=== PATIENT | female | born 1935 | race Two or more races ===

== ENCOUNTER → 2017-05-14 | Outpatient (CLI) | payer MEDICARE, MEDICAID ==
[~2017-05-14] VITALS: Ht 157.5 cm; Wt 61.7 kg
[~2017-05-14] MED LIST: ADENOSINE 52 MG in GIVE UN-DILUTED 0 ML IV ONE; ADENOSINE 90 MG/30 ML INJ IV ONE; ALPR0.25 PO; ASPI81TA13 PO; CARV6.25 PO; CLOP75TA41 PO; DEXL60CA3 PO; DIGO0.1262 PO; IBUP200C14 PO; LINA5TAB PO; SIMV-8 PO; SPIR25TA89 PO; VALS160T53 PO
== END | disposition home or self-care (01) ==
LOC: Rad HDHVI 09:08
PROVIDERS: ATTEND Internal Medicine Cardiovascular Disease
DX: I11.0 Hypertensive heart disease with heart failure (principal); I50.43 Acute on chronic combined systolic (congestive) and diastolic (congestive) heart failure; I25.10 Atherosclerotic heart disease of native coronary artery without angina pectoris; E11.9 Type 2 diabetes mellitus without complications; I25.5 Ischemic cardiomyopathy; E78.00 Pure hypercholesterolemia, unspecified; J44.9 Chronic obstructive pulmonary disease, unspecified; Z95.0 Presence of cardiac pacemaker
CPT/HCPCS: 78452; 93005; 96374; 96375; A9500; J0153

== ENCOUNTER → 2017-06-03 | Outpatient (CLI) | payer MEDICARE, MEDICAID ==
[~2017-06-03] MED LIST changes: -ADENOSINE 52 MG in GIVE UN-DILUTED 0 ML IV ONE; -ADENOSINE 90 MG/30 ML INJ IV ONE
== END | disposition home or self-care (01) ==
LOC: Rad HDHVI 08:51
PROVIDERS: ATTEND Internal Medicine Cardiovascular Disease
DX: I25.5 Ischemic cardiomyopathy (principal); I50.43 Acute on chronic combined systolic (congestive) and diastolic (congestive) heart failure
CPT/HCPCS: 93306

== ENCOUNTER → 2018-08-10 | Outpatient (CLI) | payer MEDICARE, MEDICAID ==
[~2018-08-10] MED LIST changes: +ASPI1TAB19 PO; -ASPI81TA13 PO; +SPIR25TA8 PO; -SPIR25TA89 PO
== END | disposition home or self-care (01) ==
LOC: Rad HDHVI 08:57
PROVIDERS: ATTEND Internal Medicine Cardiovascular Disease
DX: I08.8 Other rheumatic multiple valve diseases (principal); I27.20 Pulmonary hypertension, unspecified; I25.119 Atherosclerotic heart disease of native coronary artery with unspecified angina pectoris; I11.0 Hypertensive heart disease with heart failure; I50.23 Acute on chronic systolic (congestive) heart failure; I31.3 Pericardial effusion (noninflammatory)
CPT/HCPCS: 93306

== ENCOUNTER → 2018-08-13 | Outpatient (CLI) | payer MEDICARE, MEDICAID ==
[~2018-08-13] VITALS: Ht 157.5 cm; Wt 63.5 kg
[~2018-08-13] MED LIST changes: +ADENOSINE 53 MG in GIVE UN-DILUTED 0 ML IV ONE; +ADENOSINE 90 MG/30 ML INJ IV ONE
== END | disposition home or self-care (01) ==
LOC: Rad HDHVI 09:18
PROVIDERS: ATTEND Internal Medicine Cardiovascular Disease
DX: I25.119 Atherosclerotic heart disease of native coronary artery with unspecified angina pectoris (principal); I42.0 Dilated cardiomyopathy; E11.9 Type 2 diabetes mellitus without complications; I11.0 Hypertensive heart disease with heart failure; I50.23 Acute on chronic systolic (congestive) heart failure
CPT/HCPCS: 78452; 93005; 96374; 96375; A9500; J0153

== ENCOUNTER → 2018-09-28 | Outpatient (CLI) | payer MEDICARE, MEDICAID ==
[~2018-09-28] MED LIST changes: -ADENOSINE 53 MG in GIVE UN-DILUTED 0 ML IV ONE; -ADENOSINE 90 MG/30 ML INJ IV ONE; +METF-370 PO; +OME20T PO; +SACU1TAB PO; +SIMV-13 PO; +[UNRECOGNIZED DRUG - CODE] PO
[2018-09-28 09:15] VITALS: BP 128/72
--- NOTE | 2018-09-28 09:15 | NUR ---
[facility] PATIENT ARRIVED TO [facility] FOR PRE OP FOR AICD GENERATOR CHANGE.
[2018-09-28 09:47] VITALS: BP 130/68
--- NOTE | 2018-09-28 09:47 | NUR ---
Pre-Op Discharge Summary: See e-MAR for any medications given for this visit. Pre-op orders received and carried out per MD of EKG, LABS and chest xrays. Patient given a copy of EKG with instructions to go to [facility] out patient for further follow up care.
[2018-09-28 11:51] LABS: BUN/Creatinine Ratio 17.6; Calcium 9.1 mg/dL (8.5-10.1); Potassium 4.7 mmol/L (3.5-5.1)
[2018-09-28 11:52] LABS: Eosinophils # (auto) 0.1 uL; Monocytes # (auto) 0.4 uL; Monocytes % (auto) 4.8 % (0.0-12.0)
[2018-09-28 11:55] LABS: Basophils # (auto) 0.1 uL; Basophils % (auto) 0.6 % (0.0-2.0); Eosinophils % (auto) 1.6 % (0.0-7.0); Lymphocytes # (auto) 2.3 uL; Lymphocytes % (auto) 28.8 % (10.0-50.0); Mean Corpuscular Hemoglobin 27.1 pg (28.0-32.0); Mean Corpuscular Hgb Conc. 32.4 g/dL (32.0-36.0); Mean Corpuscular Volume 83.8 fL (80.0-100.0); Neutrophils % (auto) 64.2 % (37.0-80.0); Nucleated Red Blood Cells % 0.1 %; Platelet Count (auto) 231 10^3/uL (140-450); Red Blood Cells 4.41 10^6/uL (4.0-5.20); Red Cell Distribution Width 13.9 % (11.8-14.3); White Blood Cell 7.9 10^3/uL (4.4-10.8)
[2018-09-28 11:58] LABS: INR 1.05 (0.9-1.15); Partial Thromboplastin Time 22.5 sec (23.78-33.04); Prothrombin Time 11.2 sec (9.27-12.13)
== END | disposition home or self-care (01) ==
LOC: Rad HDHVI 08:50
PROVIDERS: ATTEND Internal Medicine Cardiovascular Disease
DX: Z01.818 Encounter for other preprocedural examination (principal); D64.9 Anemia, unspecified; R79.1 Abnormal coagulation profile; I11.0 Hypertensive heart disease with heart failure; I50.9 Heart failure, unspecified; I70.0 Atherosclerosis of aorta; Z95.810 Presence of automatic (implantable) cardiac defibrillator
CPT/HCPCS: 36415; 71046; 80048; 82962; 85025; 85610; 85730; 93005; G0463

== ENCOUNTER 2018-10-01 08:34 | Inpatient (IN) | payer MEDICARE, MEDICAID | END 2018-10-02 16:00 | disposition home or self-care (01) | LOC: CATH 08:34 → TELE-WESTW 16:34 | PROC: 0JPT0PZ Removal of Cardiac Rhythm Related Device from Trunk Subcutaneous Tissue and Fascia, Open Approach (ICD-10-PCS; principal; ~2018-10-01) | PROC: 0JH609Z Insertion of Cardiac Resynchronization Defibrillator Pulse Generator into Chest Subcutaneous Tissue and Fascia, Open Approach (ICD-10-PCS; ~2018-10-01) | DX: I11.0 Hypertensive heart disease with heart failure (principal); I50.23 Acute on chronic systolic (congestive) heart failure; I42.0 Dilated cardiomyopathy; Z45.02 Encounter for adjustment and management of automatic implantable cardiac defibrillator; E78.5 Hyperlipidemia, unspecified ==

== ENCOUNTER 2018-10-19 20:46 | Inpatient (IN) | payer MEDICARE, MEDICAID | END 2018-10-23 15:40 | disposition home or self-care (01) | LOC: ER 20:46 → TELE 10-20 07:26 → TELE-CENTR 10-20 15:37 | DX: J18.9 Pneumonia, unspecified organism (principal); I50.23 Acute on chronic systolic (congestive) heart failure; I31.3 Pericardial effusion (noninflammatory); E11.21 Type 2 diabetes mellitus with diabetic nephropathy; I13.0 Hypertensive heart and chronic kidney disease with heart failure and stage 1 through stage 4 chronic kidney disease, or unspecified chronic kidney disease; I42.9 Cardiomyopathy, unspecified; N18.3 Chronic kidney disease, stage 3 (moderate); E11.22 Type 2 diabetes mellitus with diabetic chronic kidney disease; I25.10 Atherosclerotic heart disease of native coronary artery without angina pectoris; D63.8 Anemia in other chronic diseases classified elsewhere ==

== ENCOUNTER → 2019-03-09 | Outpatient (CLI) | payer MEDICARE, MEDICAID ==
[~2019-03-09] MED LIST changes: -DEXL60CA3 PO; -SIMV-8 PO; -VALS160T53 PO
[2019-03-09 11:43] LABS: Urine Blood Negative /uL (Negative); Urine Specific Gravity 1.017 (1.001-1.035)
[2019-03-09 11:46] LABS: Basophils # (auto) 0 uL; Basophils % (auto) 0.5 % (0.0-2.0); Eosinophils # (auto) 0.1 uL; Eosinophils % (auto) 1.8 % (0.0-7.0); Hematocrit 35.1 % (36.0-46.0); Hemoglobin 11.6 g/dL (12.2-16.2); Lymphocytes % (auto) 26.4 % (10.0-50.0); Mean Corpuscular Hemoglobin 27.9 pg (28.0-32.0); Mean Corpuscular Hgb Conc. 33.2 g/dL (32.0-36.0); Mean Corpuscular Volume 84.1 fL (80.0-100.0); Monocytes # (auto) 0.4 uL; Monocytes % (auto) 5.1 % (0.0-12.0); Neutrophils # (auto) 4.9 uL; Neutrophils % (auto) 66.2 % (37.0-80.0); Platelet Count (auto) 218 10^3/uL (140-450); Red Blood Cells 4.17 10^6/uL (4.0-5.20); Red Cell Distribution Width 14.1 % (11.8-14.3); White Blood Cell 7.4 10^3/uL (4.4-10.8)
[2019-03-09 11:50] LABS: Potassium 4.8 mmol/L (3.5-5.1)
[2019-03-09 11:57] LABS: Albumin 3.8 g/dL (3.4-5.0); BUN/Creatinine Ratio 26.5; Bilirubin, Total 0.3 mg/dL (0.2-1.0); Calcium 9.4 mg/dL (8.5-10.1); Total Protein 7.6 g/dL (6.4-8.2)
[2019-03-09 12:00] LABS: Free T4 (Free Thyroxine) 0.99 ng/dL (0.89-1.76)
== END | disposition home or self-care (01) ==
LOC: LAB 08:23
PROVIDERS: ATTEND Internal Medicine Cardiovascular Disease
DX: I13.0 Hypertensive heart and chronic kidney disease with heart failure and stage 1 through stage 4 chronic kidney disease, or unspecified chronic kidney disease (principal); E11.22 Type 2 diabetes mellitus with diabetic chronic kidney disease; I50.23 Acute on chronic systolic (congestive) heart failure; N18.3 Chronic kidney disease, stage 3 (moderate); K90.9 Intestinal malabsorption, unspecified; N39.0 Urinary tract infection, site not specified
CPT/HCPCS: 36415; 80053; 80061; 81003; 82306; 82607; 83036; 84439; 84443; 85025; 87086; 87088; 87186

== ENCOUNTER → 2019-04-16 | Outpatient (CLI) | payer MEDICARE, MEDICAID | END | disposition home or self-care (01) | LOC: Rad HDHVI 08:49 | PROVIDERS: ATTEND Internal Medicine Cardiovascular Disease | DX: I31.3 Pericardial effusion (noninflammatory) (principal); I25.5 Ischemic cardiomyopathy; I13.0 Hypertensive heart and chronic kidney disease with heart failure and stage 1 through stage 4 chronic kidney disease, or unspecified chronic kidney disease; I50.9 Heart failure, unspecified; N18.3 Chronic kidney disease, stage 3 (moderate) | CPT/HCPCS: 93306 ==

== ENCOUNTER → 2020-06-13 | Outpatient (CLI) | payer MEDICARE, MEDICAID ==
[2020-06-13 12:09] LABS: Basophils # (auto) 0 10 ^3/uL (0-0.2); Basophils % (auto) 0.6 % (0.0-2.0); Eosinophils # (auto) 0.1 10 ^3/uL (0-0.8); Eosinophils % (auto) 1.4 % (0.0-7.0); Hematocrit 33.4 % (36.0-46.0); Lymphocytes # (auto) 1.9 10 ^3/uL (0.4-5.4); Lymphocytes % (auto) 24.3 % (10.0-50.0); Mean Corpuscular Hemoglobin 27.1 pg (28.0-32.0); Mean Corpuscular Hgb Conc. 32.8 g/dL (32.0-36.0); Mean Corpuscular Volume 82.6 fL (80.0-100.0); Monocytes # (auto) 0.4 10 ^3/uL (0-1.3); Monocytes % (auto) 5.5 % (0.0-12.0); Neutrophils # (auto) 5.3 10 ^3/uL (1.6-8.6); Neutrophils % (auto) 68.2 % (37.0-80.0); Platelet Count (auto) 238 10^3/uL (140-450); Red Blood Cells 4.04 10^6/uL (4.0-5.20); Red Cell Distribution Width 13.5 % (11.8-14.3); White Blood Cell 7.7 10^3/uL (4.4-10.8)
[2020-06-13 12:16] LABS: Urine Blood Negative /uL (Negative); Urine Specific Gravity 1.015 (1.001-1.035)
[2020-06-13 12:38] LABS: Potassium 4.6 mmol/L (3.5-5.1)
[2020-06-13 12:54] LABS: Albumin 3.6 g/dL (3.4-5.0); BUN/Creatinine Ratio 21.1; Bilirubin, Total 0.3 mg/dL (0.2-1.0); Calcium 9.4 mg/dL (8.5-10.1); Total Protein 7.1 g/dL (6.4-8.2)
[2020-06-13 14:53] LABS: Free T4 (Free Thyroxine) 0.96 ng/dL (0.89-1.76)
== END | disposition home or self-care (01) ==
LOC: LAB 09:02
PROVIDERS: ATTEND Internal Medicine Cardiovascular Disease
DX: I10 Essential (primary) hypertension (principal); D51.3 Other dietary vitamin B12 deficiency anemia; E11.9 Type 2 diabetes mellitus without complications; E55.9 Vitamin D deficiency, unspecified; D64.9 Anemia, unspecified; R00.2 Palpitations; R53.1 Weakness; R30.0 Dysuria
CPT/HCPCS: 36415; 80053; 80061; 81003; 82306; 82607; 83036; 84439; 84443; 85025

== ENCOUNTER → 2021-02-20 | Outpatient (CLI) | payer MEDICARE, MEDICAID ==
[~2021-02-20] VITALS: Ht 157.5 cm; Wt 62.6 kg
[~2021-02-20] MED LIST changes: +ADENOSINE 53 MG in GIVE UN-DILUTED 0 ML IV ONE; +ADENOSINE 90 MG/30 ML INJ IV ONE; -CLOP75TA41 PO; +CLOP75TA70 PO
== END | disposition home or self-care (01) ==
LOC: Rad HDHVI 07:54
PROVIDERS: ATTEND Internal Medicine Cardiovascular Disease
DX: I10 Essential (primary) hypertension (principal); E78.5 Hyperlipidemia, unspecified; E11.9 Type 2 diabetes mellitus without complications; R07.9 Chest pain, unspecified; Z95.0 Presence of cardiac pacemaker
CPT/HCPCS: 78452; 93005; 96374; 96375; A9500; J0153

== ENCOUNTER → 2021-02-21 | Outpatient (CLI) | payer MEDICARE, MEDICAID ==
[~2021-02-21] MED LIST changes: -ADENOSINE 53 MG in GIVE UN-DILUTED 0 ML IV ONE; -ADENOSINE 90 MG/30 ML INJ IV ONE
== END | disposition home or self-care (01) ==
LOC: Rad HDHVI 07:58
PROVIDERS: ATTEND Internal Medicine Cardiovascular Disease
DX: R07.89 Other chest pain (principal); R06.02 Shortness of breath
CPT/HCPCS: 93306

== ENCOUNTER → 2022-01-21 | Outpatient (CLI) | payer MEDICARE, MEDICAID | END | disposition home or self-care (01) | LOC: Rad HDHVI 08:36 | PROVIDERS: ATTEND Internal Medicine Cardiovascular Disease | DX: I65.23 Occlusion and stenosis of bilateral carotid arteries (principal); E78.00 Pure hypercholesterolemia, unspecified; R07.89 Other chest pain | CPT/HCPCS: 93880 ==

== ENCOUNTER → 2022-02-11 | Outpatient (CLI) | payer MEDICARE, MEDICAID ==
[~2022-02-11] VITALS: Ht 157.5 cm; Wt 62.6 kg
[~2022-02-11] MED LIST changes: +ADENOSINE 53 MG in GIVE UN-DILUTED 0 ML IV ONE; +ADENOSINE 90 MG/30 ML INJ IV ONE
== END | disposition home or self-care (01) ==
LOC: Rad HDHVI 08:05
PROVIDERS: ATTEND Internal Medicine Cardiovascular Disease
DX: E11.65 Type 2 diabetes mellitus with hyperglycemia (principal); E78.5 Hyperlipidemia, unspecified; E11.9 Type 2 diabetes mellitus without complications; I10 Essential (primary) hypertension; E11.40 Type 2 diabetes mellitus with diabetic neuropathy, unspecified; I42.0 Dilated cardiomyopathy; I80.231 Phlebitis and thrombophlebitis of right tibial vein; R06.02 Shortness of breath; R60.9 Edema, unspecified; I25.10 Atherosclerotic heart disease of native coronary artery without angina pectoris; Z95.0 Presence of cardiac pacemaker
CPT/HCPCS: 78452; 93005; 96374; 96375; A9500; J0153

== ENCOUNTER → 2022-02-27 | Outpatient (CLI) | payer MEDICARE, MEDICAID ==
[~2022-02-27] MED LIST changes: -ADENOSINE 53 MG in GIVE UN-DILUTED 0 ML IV ONE; -ADENOSINE 90 MG/30 ML INJ IV ONE
[2022-02-27 12:29] LABS: Urine Blood Negative /uL (Negative); Urine Specific Gravity 1.016 (1.001-1.035)
[2022-02-27 12:30] LABS: Basophils # (auto) 0 10 ^3/uL (0-0.2); Basophils % (auto) 0.5 % (0.0-2.0); Eosinophils # (auto) 0.1 10 ^3/uL (0-0.8); Eosinophils % (auto) 1.7 % (0.0-7.0); Hematocrit 37.9 % (36.0-46.0); Lymphocytes # (auto) 2.6 10 ^3/uL (0.4-5.4); Lymphocytes % (auto) 36.3 % (10.0-50.0); Mean Corpuscular Hemoglobin 26.6 pg (28.0-32.0); Mean Corpuscular Hgb Conc. 31.6 g/dL (32.0-36.0); Mean Corpuscular Volume 84.1 fL (80.0-100.0); Monocytes # (auto) 0.4 10 ^3/uL (0-1.3); Monocytes % (auto) 5.5 % (0.0-12.0); Red Blood Cells 4.51 10^6/uL (4.0-5.20); Red Cell Distribution Width 14.2 % (11.8-14.3); White Blood Cell 7.1 10^3/uL (4.4-10.8)
[2022-02-27 12:40] LABS: Albumin 3.6 g/dL (3.4-5.0); Calcium 9.6 mg/dL (8.5-10.1); Potassium 5.3 mmol/L (3.5-5.1)
[2022-02-27 12:44] LABS: BUN/Creatinine Ratio 16.8; Bilirubin, Total 0.3 mg/dL (0.2-1.0); Total Protein 7.2 g/dL (6.4-8.2)
[2022-02-27 12:49] LABS: Free T4 (Free Thyroxine) 1.07 ng/dL (0.89-1.76)
== END | disposition home or self-care (01) ==
LOC: LAB 08:18
PROVIDERS: ATTEND Internal Medicine Cardiovascular Disease
DX: D51.3 Other dietary vitamin B12 deficiency anemia (principal); D64.9 Anemia, unspecified; E11.9 Type 2 diabetes mellitus without complications; E55.9 Vitamin D deficiency, unspecified; I10 Essential (primary) hypertension; R00.2 Palpitations; R53.1 Weakness; R30.0 Dysuria
CPT/HCPCS: 36415; 80053; 80061; 81003; 82306; 82607; 83036; 84439; 84443; 85025; 87086

== ENCOUNTER → 2022-04-22 | Outpatient (CLI) | payer MEDICARE, MEDICAID ==
[~2022-04-22] MED LIST changes: +CARV3.1240 PO; +CHLO25TA2 PO; +CHOL50007 PO; +DAPA1TAB4 PO; +DICL75TA3 PO; +ENAL2.5T7 PO; +FURO40TA4 PO; +POTA1TAB61 PO; +ROSU10TA16 PO
[2022-04-22 08:19] VITALS: BP 120/60
[2022-04-22 08:33] VITALS: BP 121/60
[2022-04-22 11:39] LABS: BUN/Creatinine Ratio 25.4; Calcium 8.9 mg/dL (8.5-10.1); Potassium 4.1 mmol/L (3.5-5.1)
[2022-04-22 12:02] LABS: Basophils # (auto) 0 10 ^3/uL (0-0.2); Basophils % (auto) 0.6 % (0.0-2.0); Eosinophils # (auto) 0.1 10 ^3/uL (0-0.8); Eosinophils % (auto) 1.7 % (0.0-7.0); Hematocrit 37.3 % (36.0-46.0); Lymphocytes # (auto) 2.6 10 ^3/uL (0.4-5.4); Lymphocytes % (auto) 32.7 % (10.0-50.0); Mean Corpuscular Hgb Conc. 32.1 g/dL (32.0-36.0); Mean Corpuscular Volume 84.2 fL (80.0-100.0); Monocytes # (auto) 0.5 10 ^3/uL (0-1.3); Monocytes % (auto) 5.8 % (0.0-12.0); Neutrophils # (auto) 4.7 10 ^3/uL (1.6-8.6); Neutrophils % (auto) 59.2 % (37.0-80.0); Red Blood Cells 4.43 10^6/uL (4.0-5.20); Red Cell Distribution Width 14.2 % (11.8-14.3); White Blood Cell 7.9 10^3/uL (4.4-10.8)
[2022-04-22 12:32] LABS: INR 1.03 (0.9-1.15); Partial Thromboplastin Time 27.9 sec (24.6-33.4)
== END | disposition home or self-care (01) ==
LOC: Rad HDHVI 08:03
PROVIDERS: ATTEND Internal Medicine Cardiovascular Disease
DX: Z01.818 Encounter for other preprocedural examination (principal); R94.31 Abnormal electrocardiogram [ECG] [EKG]; I11.0 Hypertensive heart disease with heart failure; I50.23 Acute on chronic systolic (congestive) heart failure; R06.2 Wheezing; I42.0 Dilated cardiomyopathy; I25.5 Ischemic cardiomyopathy; R06.02 Shortness of breath; I70.0 Atherosclerosis of aorta; R79.1 Abnormal coagulation profile; Z95.0 Presence of cardiac pacemaker
CPT/HCPCS: 36415; 71046; 80048; 85025; 85610; 85730; 93005; G0463

== ENCOUNTER 2022-04-25 06:32 | Day surgery (SDC) | payer MEDICARE, MEDICAID ==
[~2022-04-25] VITALS: Ht 157.5 cm; Wt 61.2 kg
[~2022-04-25 06:32] MED LIST changes: -ALPR0.25 PO; -CARV6.25 PO; -METF-370 PO; -SIMV-13 PO
[2022-04-25] MEDS ORDERED: LIDOCAINE 2%HCL (LOCAL ANESTH.) INJ 20ML MDV ONE (07:29)
[2022-04-25] MEDS ORDERED: IOHEXOL 350 MG/ML 100ML IJ ONE (07:29)
[2022-04-25] MEDS ORDERED: fentaNYL CITRATE 100 MCG/2 ML VL ONE (08:37)
[2022-04-25] MEDS ORDERED: ANGIOMAX 250 MG VIAL IV ONE (08:37)
[2022-04-25] MEDS ORDERED: MIDAZOLAM HCL 2MG/2ML 2ml VIAL (1mg/ml) ONE (08:38)
[2022-04-25] MEDS ORDERED: SODIUM CHL 0.9% 50 ML ONE (08:38)
== END 2022-04-25 12:00 | disposition home or self-care (01) ==
LOC: CATH 06:32
PROVIDERS: ATTEND Internal Medicine Cardiovascular Disease
DX: I25.10 Atherosclerotic heart disease of native coronary artery without angina pectoris (principal); I42.9 Cardiomyopathy, unspecified; I42.0 Dilated cardiomyopathy; I73.9 Peripheral vascular disease, unspecified; E78.5 Hyperlipidemia, unspecified; Z87.891 Personal history of nicotine dependence; J44.9 Chronic obstructive pulmonary disease, unspecified; E11.40 Type 2 diabetes mellitus with diabetic neuropathy, unspecified; E11.21 Type 2 diabetes mellitus with diabetic nephropathy; E11.319 Type 2 diabetes mellitus with unspecified diabetic retinopathy without macular edema; I50.20 Unspecified systolic (congestive) heart failure; I11.0 Hypertensive heart disease with heart failure; Z95.810 Presence of automatic (implantable) cardiac defibrillator; Z79.899 Other long term (current) drug therapy; Z79.84 Long term (current) use of oral hypoglycemic drugs; Z20.822 Contact with and (suspected) exposure to COVID-19
CPT/HCPCS: 93458; C1760; C1894; J1644; J2250; J3010; J7030; Q9967; U0003; 99152; 99153

== ENCOUNTER → 2023-08-25 | Outpatient (CLI) | payer MEDICARE, MEDICAID ==
[~2023-08-25] MED LIST changes: +ENAL1TAB42 PO; -ENAL2.5T7 PO
== END | disposition home or self-care (01) ==
LOC: Rad HDHVI 08:30
PROVIDERS: ATTEND Internal Medicine Cardiovascular Disease
DX: I08.3 Combined rheumatic disorders of mitral, aortic and tricuspid valves (principal); R06.02 Shortness of breath; E78.5 Hyperlipidemia, unspecified
CPT/HCPCS: 93306

== ENCOUNTER → 2024-07-12 | Outpatient (CLI) | payer MEDICARE, MEDICAID ==
[~2024-07-12] MED LIST changes: +POTA-215 PO; -POTA1TAB61 PO
--- NOTE | 2024-07-12 16:50 | DVHSR ---
APPROVED REPORT EXAM: Two-dimensional and M-mode echocardiogram with Doppler and color Doppler. DIMENSIONS LVDd7.4 (3.8-5.7cm)LA (2D)4.2 (1.9-4.0cm)Aortic Root2.8 (2.0-3.7cm) LVDs7.0 (2.5-4.0cm)LA (MM) (1.9-4.0cm)Aortic Cusp Exc1.0 (1.5-2.0cm) EF (%) 12.4 (55-70%)Rt. Atrium3.6 (1.9-4.0cm)Asc. Aorta cm IVSd1.0 (0.7-1.1cm)RV (D)3.2 (1.8-2.4cm) PWd1.3 (0.7-1.1cm) Mitral Valve MitralMitral Stenosis E wave1.33m/sMV Mean GR.mmHg A wave1.60m/sMV Peak GR.127mmHg E/A ratio0.82D MVAcm2 DECEL [id number] 1/2 Timems Aortic Valve Aortic ValveAortic Stenosis V10.42m/Shea Mean GR.4mmHg V21.52m/Shea Peak GR.9mmHg Pulmonic Valve V20.54m/s Tricuspid Valve TR Velocity2.87m/s [id number] LEFT VENTRICLE The Ejection Fraction is <25%. ATRIA The left atrium is mildly dilated. The right atrium size is normal. MITRAL VALVE Mitral annular calcification is moderate. Mitral regurgitation is moderate to severe. PULMONIC VALVE The pulmonic valve is not well visualized. TRICUSPID VALVE The tricuspid valve is grossly normal. There is moderate tricuspid regurgitation. AORTIC VALVE The aortic valve is mildlycalcified. No aortic regurgitation is present. GREAT VESSELS The aortic root is normal size. PERICARDIAL EFFUSION There is a small pericardial effusion. Conclusion MILD PAH LVE EF <20% PACEMAKER LEAD NOTED LVH MOD TR SEVERE MR MILD AV SCLEROSIS
== END | disposition home or self-care (01) ==
LOC: Rad HDHVI 09:45
PROVIDERS: ATTEND Internal Medicine Cardiovascular Disease
DX: I08.3 Combined rheumatic disorders of mitral, aortic and tricuspid valves (principal); I11.9 Hypertensive heart disease without heart failure; I31.39 Other pericardial effusion (noninflammatory)
CPT/HCPCS: 93306

== ENCOUNTER → 2024-07-16 | Outpatient (CLI) | payer MEDICARE, MEDICAID ==
[~2024-07-16] VITALS: Ht 157.5 cm; Wt 61.2 kg
[~2024-07-16] MED LIST changes: +ADENOSINE 51 MG in GIVE UN-DILUTED 0 ML IV ONE; +ADENOSINE 90 MG/30 ML INJ IV ONE
== END | disposition home or self-care (01) ==
LOC: Rad HDHVI 08:50
PROVIDERS: ATTEND Internal Medicine Cardiovascular Disease
DX: I11.0 Hypertensive heart disease with heart failure (principal); I50.23 Acute on chronic systolic (congestive) heart failure; E78.00 Pure hypercholesterolemia, unspecified; R07.89 Other chest pain; E11.21 Type 2 diabetes mellitus with diabetic nephropathy; I49.5 Sick sinus syndrome; Z95.0 Presence of cardiac pacemaker
CPT/HCPCS: 78452; 93005; 96374; 96375; A9500; J0153

== ENCOUNTER → 2024-08-02 | Outpatient (CLI) | payer MEDICARE, MEDICAID ==
[~2024-08-02] MED LIST changes: -ADENOSINE 51 MG in GIVE UN-DILUTED 0 ML IV ONE; -ADENOSINE 90 MG/30 ML INJ IV ONE
--- NOTE | 2024-08-02 16:55 | DVH ---
EXAMINATION: XY L RIB X RAY INDICATION: POST FALL PAIN COMPARISON: None TECHNIQUE: Frontal view of the chest and 2 views of the left ribs history FINDINGS: Pulmonary vascular congestion. Cardiomegaly. No displaced left rib fracture. IMPRESSION: Pulmonary vascular congestion. No acute displaced left rib fracture.
== END | disposition home or self-care (01) ==
LOC: Rad HDHVI 15:49
PROVIDERS: ATTEND Internal Medicine Cardiovascular Disease
DX: I51.7 Cardiomegaly (principal); R09.89 Other specified symptoms and signs involving the circulatory and respiratory systems; R52 Pain, unspecified
CPT/HCPCS: 71101

== ENCOUNTER 2025-06-24 00:05 | Inpatient (IN) | payer MEDICARE, MEDICAID ==
[2025-06-24] VITALS (10 sets, daily range): BP systolic 97–129; BP diastolic 50–69; PULSE 74–89; RESP 14–32; TEMP 97.7–98; O2SAT 90–98
[~2025-06-24] VITALS: Ht 152.4 cm; Wt 56.1 kg
[2025-06-24] MEDS: FUROSEMIDE 40 MG/4 ML VIAL IV ONE (00:23)
[2025-06-24] MEDS: LORazepam 2MG/ML-1ML VIAL IV ONE (00:23)
--- NOTE | 2025-06-24 00:24 | ECG ---
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
--- NOTE | 2025-06-24 00:26 | ED.PDOC ---
SOB-HPI HPI Comments 89-year-old female who came to ER via EMS for shortness of breath. Per EMS, patient picked up at home, has a history of CHF, on home oxygen at 1 L/min. She speaks Farsi only. Has been having shortness of breath for the past few hours, progressively worsening with wheezing. Saturating 93% at 3 L/min. Patient was placed on CPAP and it improved to 94%. No family members at bedside at this time to provide more information Chief Complaint: Shortness of Breath Time Seen by MD: 00:25 Primary Care Provider: UNKNOWN Reviewed notes: Stunt Driver Notes Information Source: Patient, Emergency Med Personnel Mode of Arrival: EMS Past Medical History PAST MEDICAL HISTORY: AFIB, CHF, DM, High Lipids, HTN Surgical History: Denies all surgeries MATERIAL LIAISON History: No Pertinent MATERIAL LIAISON History Family History Family History: No family hx of Cancer Social History Smoker: Non-Smoker Alcohol: Rarely Drugs: Denies Drug Use Lives In: Home Constitutional: denies: chills, diaphoresis, fatigue, fever, malaise, sweats, weakness, others EENTM: denies: blurred vision, double vision, ear bleeding, ear discharge, ear drainage, ear pain, ear ringing, eye pain, eye redness, hearing loss, mouth pain, mouth swelling, nasal discharge, nose bleeding, nose congestion, nose pain, photophobia, tearing, throat pain, throat swelling, voice changes, others Respiratory: reports: SOB at rest, shortness of breath, SOB with excertion, wheezing; denies: cough, hemoptysis, orthopnea, stridor, others Cardiovascular: denies: chest pain, dizzy spells, diaphoresis, Dyspnea on exertion, edema, irregular heart beat, left arm pain, lightheadedness, palpitations, PND, syncope, others Gastrointestinal: denies: abdomen distended, abdominal pain, blood streaked bowels, constipated, diarrhea, dysphagia, difficulty swallowing, hematemesis, melena, nausea, poor appetite, poor fluid intake, rectal bleeding, rectal pain, vomiting, others Genitourinary: denies: abnormal vagina bleeding, burning, dyspareunia, dysuria, flank pain, frequency, hematuria, incontinence, pain, , vagina discharge, urgency, others Neurological: denies: dizziness, fainting, headache, left sided numbness, left sided weakness, numbness, paresthesia, pre-existing deficit, right sided numbness, right sided weakness, seizure, speech problems, tingling, tremors, weakness, others Musculoskeletal: denies: back pain, gout, joint pain, joint swelling, muscle pain, muscle stiffness, neck pain, others Integumetry: denies: bruises, change in color, change in hair/nails, dryness, laceration, lesions, lumps, rash, wounds, others Allergic/Immunocompromised: denies: Difficulty Healing, Frequent Infections, Hives, Itching, others Hematologic/Lymphatic: denies: anemia, blood clots, easy bleeding, easy bruising, swollen glands, others Endocrine: denies: excessive hunger, excessive sweating, excessive thirst, excessive urination, flushing, intolerance to cold, intolerance to heat, unexplained weight gain, unexplained weight loss, others Psychiatric: denies: anxiety, bipolar disorder, depression, hopeless, panic disorder, schizophrenia, sleepless, suicidal, others Physical Exam General Appearance: No Apparent Distress, Normal HEENT: Normal ENT Inspection, Pharynx Normal, TMs Normal Neck: Full Range of Motion, Non-Tender, Normal, Normal Inspection Respiratory: Chest Non-Tender, No Accessory Muscle Use, Respiratory Distress, Wheezing Cardiovascular: No Edema, No JVD, No Murmur, No Gallop, Normal Peripheral Pulses, Regular Rate/Rhythm Breast Exam: Deferred Gastrointestinal: No Organomegaly, Non Tender, No Pulsatile Mass, Normal Bowel Sounds, Soft Genitalia: Deferred Pelvic: Deferred Rectal: Deferred Extremities: No calf tenderness, Normal capillary refill, Normal inspection, Normal range of motion, Non-tender, No pedal edema Musculoskeletal : Apperance: Normal Neurologic: Alert, consulting practice director II-XII nml as Tested, No Motor Deficits, Normal Affect, Normal Mood, No Sensory Deficits Cerebellar Function: Normal Reflexes: Normal Skin: Dry, Normal Color, Warm Lymphatic: No Adenopathy Was a procedure done? Was a procedure done?: No Differential Dx Differential Diagnosis: Anxiety, Asthma, Bronchitis, CHF, COPD, Myocardial infarction, Panic Attack, Pneumonia, Respiratory Distress X-Ray, Labs, Meds, VS Vital Signs Date Time Temp Pulse Resp B/P (MAP) Pulse Ox O2 Delivery O2 Flow Rate FiO2 06/24/25 01:30 72 26 108/57 (74) 96 06/24/25 00:32 106 150/90 40 06/24/25 00:31 32 93 Bi-Pap+ 45 45 06/24/25 00:23 150/90 06/24/25 00:20 96.6 110 25 110/40 94 96.6 06/24/25 00:15 96.6 102 35 150/90 (110) 95 96.6 06/24/25 00:13 102 Lab Test 06/24/25 01:31 06/24/25 00:31 06/24/25 00:20 Range/Units Troponin I High Sensitivity 55 *H 64 *H </=34 ng/L White Blood Count 16.5 H 4.4-10.8 10^3/uL Red Blood Count 4.94 4.0-5.20 10^6/uL Hemoglobin 13.4 12.2-16.2 g/dL Hematocrit 41.4 36.0-46.0 % Mean Corpuscular Volume 83.9 80.0-100.0 fL Mean Corpuscular Hemoglobin 27.1 L 28.0-32.0 pg Mean Corpuscular Hemoglobin Concent 32.3 32.0-36.0 g/dL Red Cell Distribution Width 14.3 11.8-14.3 % Platelet Count 265 140-450 10^3/uL Mean Platelet Volume 8.5 6.9-10.8 fL Neutrophils (%) (Auto) 75.4 37.0-80.0 % Lymphocytes (%) (Auto) 20.2 10.0-50.0 % Monocytes (%) (Auto) 3.2 0.0-12.0 % Eosinophils (%) (Auto) 0.4 0.0-7.0 % Basophils (%) (Auto) 0.8 0.0-2.0 % Neutrophils # (Auto) 12.4 H 1.6-8.6 10 ^3/uL Lymphocytes # (Auto) 3.3 0.4-5.4 10 ^3/uL Monocytes # (Auto) 0.5 0-1.3 10 ^3/uL Eosinophils # (Auto) 0.1 0-0.8 10 ^3/uL Basophils # (Auto) 0.1 0-0.2 10 ^3/uL Nucleated Red Blood Cells 0.2 % Prothrombin Time 12.3 H 9.3-11.8 sec Prothrombin Time INR 1.18 H 0.9-1.15 Activated Partial Thromboplast Time 27.5 24.5-34.5 SEC Sodium Level 135 L 136-145 mmol/L Potassium Level 4.5 3.5-5.1 mmol/L Chloride Level 99 98-107 mmol/L Carbon Dioxide Level 26 20-31 mmol/L Anion Gap 10 5-15 Blood Urea Nitrogen 37 H 9-23 mg/dL Creatinine 1.32 H 0.550-1.02 mg/dL Glomerular Filtration Rate Calc 39 >90 mL/min BUN/Creatinine Ratio 28.0 H 10.0-20.0 Serum Glucose 318 H 74-106 mg/dL Calcium Level 9.3 8.7-10.4 mg/dL Total Bilirubin 0.6 0.2-1.0 mg/dL Aspartate Amino Transferase (AST) 27 13-40 U/L Alanine Aminotransferase (ALT) 10 7-40 U/L Alkaline Phosphatase 74 46-116 U/L B-Type Natriuretic Peptide 565.45 0-100 pg/mL Total Protein 7.4 5.7-8.2 g/dL Albumin 4.5 3.2-4.8 g/dL Blood Gas Specimen Type Venous Blood Gas Sample Site Vbg - n/a Blood Gas Patient Temperature 37.0 Arterial Blood Date Drawn Petros Test N/a Venous Blood pH 7.330 7.320-7.430 Venous Blood pCO2 at Patient Temp 48.4 38.0-54.0 mmHg Venous Blood pO2 at Patient Temp 68.4 H 23.0-48.0 mmHg Venous Blood HCO3 24.9 22.0-29.0 mmol/L Venous Blood Base Excess -1.5 -2.0-3.0 mmol/L Blood Gas Set Respiration Rate 12.0 Blood Gas Modality Mask - bipap Blood Gas Spontaneous Rate 36 FiO2 % 40.0 Blood Gas EPAP 5 Blood Gas IPAP 12 Current Medications Medications (Trade) Dose Ordered Sig/Annmarie Route Start Time Stop Time Status Last Admin Furosemide (Lasix Injection) 40 mg ONCE ONCE IV 06/24/25 00:15 06/24/25 00:16 DC 06/24/25 00:23 Lorazepam (Ativan Inj) 0.5 mg ONCE ONCE IV 06/24/25 00:30 06/24/25 00:31 DC 06/24/25 00:23 Sodium Chloride 250 ml @ 1,000 mls/hr Q15M ONCE IV 06/24/25 02:00 06/24/25 02:14 06/24/25 02:06 Time of 1ST Reevaluation: 00:22 Reevaluation 1ST: Unchanged Patient Education/Counseling: Diagnosis, Treatment Family Education/Counseling: No Family Present SEPSIS Sepsis Screen Recent Procedure: No On Antibiotic Therapy: No Respiratory Rate >20: Yes Heart Rate >90: Yes Temp<36 C (96.8 F) or >38.3 C: No SBP <90 or MAP <65 mmHG: No New Acute Mental Status Change: No Is the patient on CPAP, BIPAP,: Yes IV fluid challenge completed?: Yes (IV fluid challenge bolus was limited to 250 cc due to heart failure) Physician Orders Chest Portable (06/24/25 00:12) Oncology Social Worker (06/24/25 00:12) Pulse Oximetry (06/24/25 00:12) Troponin-I Hs (06/24/25 03:12) BIPAP (06/24/25 00:12) Venous Blood Gas (06/24/25 00:12) Yang Catheters (06/24/25 ) Blood Culture (06/24/25 01:53) Lactic Acid W/ Reflex Order (06/24/25 01:53) Sodium Chloride 0.9% (06/24/25 02:00) Ceftriaxone 1gm/50ml (Rocephin) (06/24/25 02:00) Azithromycin 500mg/250ml (Zithromax 500m (06/24/25 02:00) Vital Signs Date Time Temp Pulse Resp B/P (MAP) Pulse Ox O2 Delivery O2 Flow Rate FiO2 06/24/25 01:30 72 26 108/57 (74) 96 06/24/25 00:32 106 150/90 40 06/24/25 00:31 32 93 Bi-Pap+ 45 45 06/24/25 00:23 150/90 06/24/25 00:20 96.6 110 25 110/40 94 96.6 06/24/25 00:15 96.6 102 35 150/90 (110) 95 96.6 06/24/25 00:13 102 Laboratory Tests Test 06/24/25 00:31 White Blood Count 16.5 10^3/uL (4.4-10.8) H Medications Medications Dose Ordered Sig/Annmarie Route Start Time Stop Time Status Last Admin Dose Admin Furosemide 40 mg ONCE ONCE IV 06/24/25 00:15 06/24/25 00:16 DC 06/24/25 00:23 Lorazepam 0.5 mg ONCE ONCE IV 06/24/25 00:30 06/24/25 00:31 DC 06/24/25 00:23 Sodium Chloride 250 ml @ 1,000 mls/hr Q15M ONCE IV 06/24/25 02:00 06/24/25 02:14 06/24/25 02:06 Departure 1 Departure Time of Disposition: 02:15 Impression: Primary Impression: Acute respiratory failure Additional Impressions: CKD (chronic kidney disease) stage 3, GFR 30-59 ml/min Congestive heart failure Disposition: ADMITTED INPATIENT Admit to: Tele Condition: Guarded Comments 89-year-old female with a history of congestive heart failure now brought in by paramedics from home. She does have some oxygen at home and need to increase her rate to 4 tonight. EMS started BiPAP. We continued BiPAP in the emergency department. Patient was given Lasix. Her chest x-ray shows CHF. She was also given Rocephin and IV antibiotics. She was not given a full dose of 30 cc/kilogram IV fluid bolus due to the concerns of heart failure. She was given IV fluid bolus of 250 cc. Patient will need to be admitted for supportive care and further workup. Critical Care Note Critical Care Time?: Yes (35 min-critical care time only) Critical care comment: Shortness of breath Total critical care time: Approximately 36 minutes Due to a high probability of clinically significant, life threatening deterioration, the patient required my highest level of preparedness to intervene emergently and I personally spent this critical care time directly and personally managing the patient. This critical care time included obtaining a history; examining the patient; pulse oximetry; ordering and review of studies; arranging urgent treatment with development of a management plan; evaluation of patient's response to treatment; frequent reassessment; and, discussions with other providers. This critical care time was performed to assess and manage the high probability of imminent, life-threatening deterioration that could result in multi-organ failure. It was exclusive of separately billable procedures and treating other patients. Stability Stability form required: No Heart Score Heart Score: Heart Score Response (Comments) Value History Moderate Suspicious 1 EKG Repolarization Disturb 1 Age >65 2 Risk Factors >3 or Hx ASHD 2 Troponin Normal limit 0 Total 6 I personally scribed for BYRON BALDWIN MD ([email or web address]) on 06/24/25 at 00:26. Electronically submitted by Andriy Bower ([email or web address]). BYRON BALDWIN MD Jun 24, 2025 00:26
[2025-06-24 00:44] LABS: Hematocrit 41.4 % (36.0-46.0); Hemoglobin 13.4 g/dL (12.2-16.2); Mean Corpuscular Hemoglobin 27.1 pg (28.0-32.0); Mean Corpuscular Volume 83.9 fL (80.0-100.0); Nucleated Red Blood Cells % 0.2 %
--- NOTE | 2025-06-24 00:46 | DVH ---
CHEST RADIOGRAPH INDICATION: SOB TECHNIQUE: 1 view COMPARISON: 04/22/2022 FINDINGS: Lines and Tubes: Unchanged left implanted cardiac device positioning. Lungs/Pleura: Diffuse perihilar interstitial opacities. Small pleural effusions with basilar atelectasis. Cardiomediastinum: Cardiomegaly with central pulmonary vascular enlargement. Aortic atherosclerosis. Other: No acute osseous abnormality. IMPRESSION: 1. Findings compatible with heart failure including small pleural effusions.
[2025-06-24 00:59] LABS: INR 1.18 (0.9-1.15); Partial Thromboplastin Time 27.5 SEC (24.5-34.5); Prothrombin Time 12.3 sec (9.3-11.8)
[2025-06-24 01:03] LABS: Alanine Aminotransferase 10 U/L (7-40); Albumin 4.5 g/dL (3.2-4.8); Alkaline Phosphatase 74 U/L (46-116); Anion Gap 10 (5-15); BUN/Creatinine Ratio 28.0 (10.0-20.0); Bilirubin, Total 0.6 mg/dL (0.2-1.0); Calcium 9.3 mg/dL (8.7-10.4); Carbon Dioxide 26 mmol/L (20-31); Chloride 99 mmol/L (98-107); Potassium 4.5 mmol/L (3.5-5.1); Total Protein 7.4 g/dL (5.7-8.2)
[2025-06-24 01:15] LABS: Blood Urea Nitrogen 37 mg/dL (9-23); Glucose 318 mg/dL (74-106); Sodium 135 mmol/L (136-145)
[2025-06-24] MEDS: AZITHROMYCIN 500MG/250ML 250 ML IV ONE (01:59)
[2025-06-24] MEDS: SODIUM CHLORIDE 0.9% 250 ML IV ONE (02:06)
--- NOTE | 2025-06-24 02:36 | DVHHPRES ---
History of Present Illness Resident Creating Document: ADELFO VALDOVINOS History of Present Illness Ms Marianna Lockwood, an 89-year-old parsi speaking female with past medical history of systolic heart failure with ejection fraction 20%, hypertension, dilated cardiomyopathy, arthritis, status post Bi V ICD implantation 4 years ago with Biotronik device, accompanied by daughter in-law presented to the ER with the complaints of acute onset progressive shortness of breaths. The [id number] reported since 6:00 p.m. the patient was struggling to breathe and was having cold sweats. The [id number] says around September or October the patient was admitted at [facility] due to fluid in lungs. At that time she was intubated. The patient was alert, oriented and thankful for the care during history taking. She was receiving breathing treatments. She denies any fever, cough, sick contacts. Past medical history: As above Past surgical history: Pacemaker placed in 2013 and 2018. Allergies: Azithromycin Smoking: Quit 8 years ago. Heavy smoker for 30 years Alcohol: Very rarely No drugs According to the daughter in-law, patient wants DNR and DNI. However patient is open to blood transfusion. But the [id number] suggests a discussion should be held between the patient's children and the patient. Review of Systems Allergies: Coded Allergies: Azithromycin (Unverified Adverse Reaction, Unknown, DECREASE IN BLOOD PRESSURE, SOB, BURNING AT IV SITE, 04/22/22) Exam Vital Signs Vital Signs Date Time Temp Pulse Resp B/P (MAP) Pulse Ox O2 Delivery O2 Flow Rate FiO2 06/24/25 02:16 69 101/50 Facial BiPAP Mask 45 06/24/25 01:30 26 96 06/24/25 00:20 96.6 96.6 Exam Pt is lying on bed General Appearance: Alert, Oriented X3, Cooperative, Mild distress HEENT: Atraumatic, Mucous membranes moist/pink Respiratory: Clear to auscultation, Normal air movement, No added sounds Cardiovascular: Regular rate, Normal S1, Normal S2, No murmurs Abdominal/ : Active bowel sounds, Soft, no distention, no tenderness Extremities: No edema, Normal pulses, No tenderness/swelling Skin: No Significant rash, except past surgical scars Neuro: Normal speech, sensorimotor deficits none Psych/Mental Status: Mental status NL, Mood NL Nurse was there as physician obstetrician during examination Labs/Xrays Labs Test 06/24/25 01:31 06/24/25 00:31 06/24/25 00:20 Range/Units Troponin I High Sensitivity 55 *H </=34 ng/L White Blood Count 16.5 H 4.4-10.8 10^3/uL Red Blood Count 4.94 4.0-5.20 10^6/uL Hemoglobin 13.4 12.2-16.2 g/dL Hematocrit 41.4 36.0-46.0 % Mean Corpuscular Volume 83.9 80.0-100.0 fL Mean Corpuscular Hemoglobin 27.1 L 28.0-32.0 pg Mean Corpuscular Hemoglobin Concent 32.3 32.0-36.0 g/dL Red Cell Distribution Width 14.3 11.8-14.3 % Platelet Count 265 140-450 10^3/uL Mean Platelet Volume 8.5 6.9-10.8 fL Neutrophils (%) (Auto) 75.4 37.0-80.0 % Lymphocytes (%) (Auto) 20.2 10.0-50.0 % Monocytes (%) (Auto) 3.2 0.0-12.0 % Eosinophils (%) (Auto) 0.4 0.0-7.0 % Basophils (%) (Auto) 0.8 0.0-2.0 % Neutrophils # (Auto) 12.4 H 1.6-8.6 10 ^3/uL Lymphocytes # (Auto) 3.3 0.4-5.4 10 ^3/uL Monocytes # (Auto) 0.5 0-1.3 10 ^3/uL Eosinophils # (Auto) 0.1 0-0.8 10 ^3/uL Basophils # (Auto) 0.1 0-0.2 10 ^3/uL Nucleated Red Blood Cells 0.2 % Prothrombin Time 12.3 H 9.3-11.8 sec Prothrombin Time INR 1.18 H 0.9-1.15 Activated Partial Thromboplast Time 27.5 24.5-34.5 SEC Sodium Level 135 L 136-145 mmol/L Potassium Level 4.5 3.5-5.1 mmol/L Chloride Level 99 98-107 mmol/L Carbon Dioxide Level 26 20-31 mmol/L Anion Gap 10 5-15 Blood Urea Nitrogen 37 H 9-23 mg/dL Creatinine 1.32 H 0.550-1.02 mg/dL Glomerular Filtration Rate Calc 39 >90 mL/min BUN/Creatinine Ratio 28.0 H 10.0-20.0 Serum Glucose 318 H 74-106 mg/dL Calcium Level 9.3 8.7-10.4 mg/dL Total Bilirubin 0.6 0.2-1.0 mg/dL Aspartate Amino Transferase (AST) 27 13-40 U/L Alanine Aminotransferase (ALT) 10 7-40 U/L Alkaline Phosphatase 74 46-116 U/L B-Type Natriuretic Peptide 565.45 0-100 pg/mL Total Protein 7.4 5.7-8.2 g/dL Albumin 4.5 3.2-4.8 g/dL Blood Gas Specimen Type Venous Blood Gas Sample Site Vbg - n/a Blood Gas Patient Temperature 37.0 Arterial Blood Date Drawn Petros Test N/a Venous Blood pH 7.330 7.320-7.430 Venous Blood pCO2 at Patient Temp 48.4 38.0-54.0 mmHg Venous Blood pO2 at Patient Temp 68.4 H 23.0-48.0 mmHg Venous Blood HCO3 24.9 22.0-29.0 mmol/L Venous Blood Base Excess -1.5 -2.0-3.0 mmol/L Blood Gas Set Respiration Rate 12.0 Blood Gas Modality Mask - bipap Blood Gas Spontaneous Rate 36 FiO2 % 40.0 Blood Gas EPAP 5 Blood Gas IPAP 12 SEPSIS Sepsis Screen Date sepsis recognized/suspect: Jun 24, 2025 Time Sepsis recognized/suspect: 14 Recent Procedure: No On Antibiotic Therapy: No Respiratory Rate >20: Yes Heart Rate >90: Yes Temp<36 C (96.8 F) or >38.3 C: No SBP <90 or MAP <65 mmHG: No New Acute Mental Status Change: No Is the patient on CPAP, BIPAP,: Yes IV fluid challenge completed?: Yes (IV fluid challenge bolus was limited to 250 cc due to heart failure) Physician Orders Chest Portable (06/24/25 00:12) Trade Sales Assistant (06/24/25 00:12) Pulse Oximetry (06/24/25 00:12) Troponin-I Hs (06/24/25 03:12) BIPAP (06/24/25 00:12) Venous Blood Gas (06/24/25 00:12) Yang Catheters (06/24/25 ) Blood Culture (06/24/25 01:53) Lactic Acid W/ Reflex Order (06/24/25 01:53) Azithromycin 500mg/250ml (Zithromax 500m (06/24/25 02:00) Vital Signs Date Time Temp Pulse Resp B/P (MAP) Pulse Ox O2 Delivery O2 Flow Rate FiO2 06/24/25 02:16 69 101/50 Facial BiPAP Mask 45 06/24/25 01:30 72 26 108/57 (74) 96 06/24/25 00:32 106 150/90 40 06/24/25 00:31 32 93 Bi-Pap+ 45 45 06/24/25 00:23 150/90 06/24/25 00:20 96.6 110 25 110/40 94 96.6 06/24/25 00:15 96.6 102 35 150/90 (110) 95 96.6 06/24/25 00:13 102 Laboratory Tests Test 06/24/25 00:31 White Blood Count 16.5 10^3/uL (4.4-10.8) H Medications Medications Dose Ordered Sig/Annmarie Route Start Time Stop Time Status Last Admin Dose Admin Furosemide 40 mg ONCE ONCE IV 06/24/25 00:15 06/24/25 00:16 DC 06/24/25 00:23 40 MG Lorazepam 0.5 mg ONCE ONCE IV 06/24/25 00:30 06/24/25 00:31 DC 06/24/25 00:23 0.5 MG Sodium Chloride 250 ml @ 1,000 mls/hr Q15M ONCE IV 06/24/25 02:00 06/24/25 02:14 DC 06/24/25 02:06 1,000 MLS/HR Assessment/Plan Assessment/Plan Heart failure with reduced ejection fraction, EF 20% AICD end of life History of ventricular tachycardia History of accelerated hypertension History of hyperlipidemia Echocardiography on 10/20/2018 EF 20%, and other echocardiography ordered, p ending results EKG on 06/24/2025: Left bundle branch block, however does not meet Sgarbossa criteria. Troponin mildly elevated in 50s and 60s. Continue trending troponin GDMT: Continue Entresto, spironolactone, carvedilol. Held enalapril due to compromised renal function Continue digoxin 0.125 mg p.o. daily. Cardiology consulted Hypertensive heart disease Chlorthalidone Leukocytosis Pneumonia due to Gram-positive or Gram-negative organism CXR: Pleural effusion IV ceftriaxone and IV doxycycline ordered Azithromycin held due to patient's allergy and QT prolongation History of CKD type 3 Held nephrotoxic drugs including home medication enalapril GI prophylaxis: Pantoprazole DVT prophylaxis: SCDs Diet: Cardiac Goals of care discussed with the patient for more than 27 minutes: Full code s tatus Case discussed with Dr. Concepcion , patient and RN Plan discussed with: Other (Daughter in law) Visit Coding STANDARD RES Billing Provider: RACHEL CONCEPCION MD Date of Service if different f: Jun 24, 2025 Common Visit Codes: 97666-XJMAZRG INP/OBS CARE (HIGH) Secondary Visit Codes: 99186-PIXJGGFR CARE PLAN 30 MINUTES ADELFO VALDOVINOS RESIDENT Jun 24, 2025 02:36
[2025-06-24] MEDS ORDERED: DEXTROSE (50%) 50ML SYRG IV PRN (03:00)
[2025-06-24] MEDS: DOXYCYCLINE 100MG/100ML 100 ML IV SCH (03:57)
[2025-06-24 04:05] LABS: Urine Protein, UAD Negative (Negative)
[2025-06-24] MEDS: FUROSEMIDE 40 MG/4 ML VIAL IV SCH (05:28)
--- NOTE | 2025-06-24 06:26 | ECG ---
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
[2025-06-24] MEDS: ACCU-CHEK COMFORT CURVE STRIP VI SCH (06:42)
[2025-06-24] MEDS: InsuLIN REG 1unit/0.01ml Soln (100units/ml) SC SCH (06:46)
[2025-06-24] MEDS: INSULIN LANTUS (GLARGINE) 1 /0.01ml (100units/ml) SC SCH (06:46)
--- NOTE | 2025-06-24 07:47 | DVH ---
US KIDNEY HISTORY:: ZAID COMPARISON: None TECHNIQUE:: Sonographic grayscale and color doppler evaluation of the kidneys and urinary bladder was performed. FINDINGS: RIGHT: 10.5 cm. Normal cortical echogenicity and normal contour. No hydronephrosis. No focal renal mass lesion or shadowing stone. Benign-appearing cysts in the right kidney with the largest measuring 3.2 cm. LEFT: 10.2 cm. Normal cortical echogenicity and normal contour. No hydronephrosis. Question 6 mm stone of the left superior kidney. Indeterminate possible solid-appearing mass of the superior pole of the left kidney versus inferior to the spleen which may reflect a splenule versus kidney lesion. Consi annie further evaluation with CT urogram. BLADDER: Bladder is decompressed with a Yang catheter and cannot be adequately assessed. OTHER: None IMPRESSION: 1. Kidney mass versus splenule superior to the left kidney. 2. 6 mm nonobstructive left kidney stone. 3. Acquired cystic renal disease.
[2025-06-24 09:11] LABS: COVID19 ANTIGEN SOFIA FIA NEGATIVE (NEGATIVE)
[2025-06-24] MEDS: PANTOPRAZOLE 40 MG/10 ML VIAL INJ IV SCH (09:36)
[2025-06-24] MEDS: ACETAMINOPHEN 325 MG TAB PO PRN (09:36)
[2025-06-24] MEDS: SACUBITRIL-VALSARTAN 24mg/26mg TAB PO SCH (09:37)
[2025-06-24] MEDS: CHLORTHALIDONE 25 MG TAB PO SCH (09:37)
[2025-06-24] MEDS: ASPirin-EC 81 mg tab PO SCH (09:37)
[2025-06-24] MEDS: SPIRONOLACTONE 25 MG TAB PO SCH (09:38)
[2025-06-24] MEDS: DIGOXIN 0.125 MG TAB PO SCH (09:38)
[2025-06-24] MEDS: CLOPIDOGREL BISULFATE 75 MG TAB PO SCH (09:38)
[2025-06-24] MEDS ORDERED: CARVEDILOL 3.125 MG TAB PO SCH (10:00)
[2025-06-24] MEDS ORDERED: FUROSEMIDE 40 MG/4 ML VIAL IV SCH (10:00)
--- NOTE | 2025-06-24 16:13 | DVHPN2 ---
Progress Note - Dictate Date Seen: Jun 24, 2025 Medical Necessity Reason Pt with a Central, PICC or Fol: No Subjective PT WITH SS COMPLEX SOB RAMIREZ PMH * Dilated cardiomyopathy. * Heart failure with reduced ejection fraction. * Status post permanent pacemaker implantation, status post upgrade to a dual chamber AICD. Now presents with signs and symptom complex of increasing shortness of breath. She had the pacemaker initially implanted in 2013 and subsequently underwent upgrade to a dual chamber AICD in 2019. PERTINENT MEDICAL HISTORY: Significant for: * Hypertension. * Hyperlipidemia. * History of coronary artery disease. * History of tobacco use, discontinued in 2013. * History of COPD. * History of diabetes with: A. Diabetic neuropathy. B. Diabetic nephropathy. C. Diabetic retinopathy. CURRENT MEDICATIONS: Include aspirin, Plavix as well as Entresto and also, anticholesterol medication. FAMILY HISTORY: Negative. SOCIAL HISTORY: At this time, as stated above, remote history of tobacco use, discontinued in 2013. REVIEW OF SYSTEMS: She denies any fever or chills. No endocrine disorder, other than diabetes. No history of any diverticulosis or diverticulitis. No history of abdominal pain. No history of irritable bowel syndrome or inflammatory bowel disease. No liver disease. At this time, denies any CVA in the past. No history of TIA. No history of trauma. She is COVID negative as well. No history of any musculoskeletal disease other than osteoarthritis. No rheumatologic disorder such as lupus or rheumatoid arthritis. vital signs Vital Sign Date Time Temp Pulse Resp B/P (MAP) Pulse Ox O2 Delivery O2 Flow Rate FiO2 06/24/25 12:56 98.0 81 17 123/69 (87) 92 98.0 06/24/25 11:11 Nasal Cannula* 4 36 Total Intake and Output 06/23/25 06/23/25 06/24/25 15:00 23:00 07:00 Intake Total 400 ml Output Total 2000 ml Balance -1600 ml medications Current Medications Medications Dose Ordered Sig/Annmarie Route Start Time Stop Time Status Last Admin Dose Admin Acetaminophen 650 mg Q6HP PRN PO 06/24/25 02:45 06/24/25 09:36 650 MG Furosemide 40 mg BID IV 06/24/25 03:00 06/24/25 09:37 40 MG Ceftriaxone Sodium 50 ml @ 100 mls/hr Q24H IV 06/25/25 03:00 Doxycycline Hyclate 100 ml @ 50 mls/hr Q12H IV 06/24/25 03:00 06/24/25 15:29 50 MLS/HR Insulin Glargine 12 units QAM SC 06/24/25 07:00 Diagnostic Test (Pha) 1 strip ACHS 06/24/25 07:00 06/24/25 11:30 1 STRIP Insulin Human Regular ACHS SC 06/24/25 07:00 06/24/25 11:30 3 UNITS Dextrose 50 ml UD PRN IV 06/24/25 03:00 Aspirin 81 mg DAILY PO 06/24/25 10:00 06/24/25 09:37 81 MG Chlorthalidone 25 mg DAILY PO 06/24/25 10:00 06/24/25 09:37 25 MG Clopidogrel Bisulfate 75 mg DAILY PO 06/24/25 10:00 06/24/25 09:38 75 MG Digoxin 0.125 mg DAILY PO 06/24/25 10:00 06/24/25 09:38 0.125 MG Sacubitril/ Valsartan 1 tab DAILY PO 06/24/25 10:00 06/24/25 09:37 1 TAB Spironolactone 25 mg BID PO 06/24/25 10:00 06/24/25 09:38 25 MG Pantoprazole Sodium 40 mg DAILY IV 06/24/25 10:00 06/24/25 09:36 40 MG laboratory and microbiology Laboratory Tests 06/24/25 00:31 Test 06/24/25 00:31 Range/Units Serum Glucose 318 H 74-106 mg/dL Problem List SOB RAMIREZ LEUKOCYTOSIS CKD STAGE III PMH * Dilated cardiomyopathy. * Heart failure with reduced ejection fraction. * Status post permanent pacemaker implantation, status post upgrade to a dual chamber AICD. Now presents with signs and symptom complex of increasing shortness of breath. She had the pacemaker initially implanted in 2013 and subsequently underwent upgrade to a dual chamber AICD in 2019. PERTINENT MEDICAL HISTORY: Significant for: * Hypertension. * Hyperlipidemia. * History of coronary artery disease. * History of tobacco use, discontinued in 2013. * History of COPD. * History of diabetes with: A. Diabetic neuropathy. B. Diabetic nephropathy. C. Diabetic retinopathy. Assessment/Plan ABX CONT DIURESIS Plan discussed with: Patient, Daughter Critical Care Time(min): 35 ARUNASALAM,LEWIS MD Jun 24, 2025 16:12
--- NOTE | 2025-06-24 16:53 | DVHPNRES ---
Progress Note Date Seen: Jun 24, 2025 Resident Creating Document: TOYA ESPARZA RESDIENT Medical Necessity Reason Pt with a Central, PICC or Fol: No Subjective Review of Systems Ms Marianna Lockwood, an 89-year-old parsi speaking female with past medical history of systolic heart failure with ejection fraction 20%, hypertension, dilated cardiomyopathy, arthritis, status post Bi V ICD implantation 4 years ago with Biotronik device, accompanied by daughter in-law presented to the ER with the complaints of acute onset progressive shortness of breaths. The [id number] reported since 6:00 p.m. the patient was struggling to breathe and was having cold sweats. The ucusftye-oc-iov says around September or October the patient was admitted at [facility] due to fluid in lungs. At that time she was intubated. On 06/24, patient seen and examined at the bedside. Patient is feeling better since admission but still complaining of shortness of breaths. Objective vital signs Vital Sign Date Time Temp Pulse Resp B/P (MAP) Pulse Ox O2 Delivery O2 Flow Rate FiO2 06/24/25 12:56 98.0 81 17 123/69 (87) 92 98.0 06/24/25 11:11 Nasal Cannula* 4 36 Total Intake and Output 06/23/25 06/23/25 06/24/25 15:00 23:00 07:00 Intake Total 400 ml Output Total 2000 ml Balance -1600 ml medications Current Medications Medications Dose Ordered Sig/Annmarie Route Start Time Stop Time Status Last Admin Dose Admin Acetaminophen 650 mg Q6HP PRN PO 06/24/25 02:45 06/24/25 09:36 650 MG Furosemide 40 mg BID IV 06/24/25 03:00 06/24/25 09:37 40 MG Ceftriaxone Sodium 50 ml @ 100 mls/hr Q24H IV 06/25/25 03:00 Doxycycline Hyclate 100 ml @ 50 mls/hr Q12H IV 06/24/25 03:00 06/24/25 15:29 50 MLS/HR Insulin Glargine 12 units QAM SC 06/24/25 07:00 Diagnostic Test (Pha) 1 strip ACHS 06/24/25 07:00 06/24/25 11:30 1 STRIP Insulin Human Regular ACHS SC 06/24/25 07:00 06/24/25 11:30 3 UNITS Dextrose 50 ml UD PRN IV 06/24/25 03:00 Aspirin 81 mg DAILY PO 06/24/25 10:00 06/24/25 09:37 81 MG Chlorthalidone 25 mg DAILY PO 06/24/25 10:00 06/24/25 09:37 25 MG Clopidogrel Bisulfate 75 mg DAILY PO 06/24/25 10:00 06/24/25 09:38 75 MG Digoxin 0.125 mg DAILY PO 06/24/25 10:00 06/24/25 09:38 0.125 MG Sacubitril/ Valsartan 1 tab DAILY PO 06/24/25 10:00 06/24/25 09:37 1 TAB Spironolactone 25 mg BID PO 06/24/25 10:00 06/24/25 09:38 25 MG Pantoprazole Sodium 40 mg DAILY IV 06/24/25 10:00 06/24/25 09:36 40 MG Examination General Appearance: Alert, Oriented X3, Cooperative, No acute distress HEENT: Atraumatic, PERRLA, EOMI, Mucous membrane moist/pink Respiratory: Bilateral crackles Cardiovascular: Regular rate, Normal S1, Normal S2, No murmurs, no chest wall tenderness Abdominal: Normal bowel sounds, Soft, No tenderness, No hepatospenomegaly, No masses Extremities: Bilateral grade 2 pedal edema Skin: No rashes, No breakdown, No significant lesion Neuro: Normal gait, Normal speech, Strength at 5/5 X4 ext, Normal tone, Sensation intact, Cranial nerves 3-12 NL, Reflexes 2+ Psych/Mental Status: Mental status NL, Mood NL laboratory and microbiology Laboratory Tests 06/24/25 00:31 Test 06/24/25 00:31 Range/Units Serum Glucose 318 H 74-106 mg/dL Microbiology Date/Time Source Procedure Growth Status 06/24/25 07:42 Nose MRSA Screen - Final Complete Labs and/or images reviewed: Labs reviewed by me, Image(s) reviewed by me Problem List/Assessment/Plan Problem List/Assessment/Plan Acute on chronic hypoxic respiratory failure, likely due to COPD exacerbation/heart failure exacerbation Acute on chronic systolic heart failure COPD exacerbation Pneumonia due to Gram-positive or Gram-negative organism NSTEMI, likely type 2, due to above Sepsis, due to above History of CKD type 3 AICD end of life History of ventricular tachycardia History of accelerated hypertension History of hyperlipidemia Hypertensive heart disease Hypertension. Hyperlipidemia. History of coronary artery disease. History of tobacco use, discontinued in 2013. 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 * IV steroid, and breathing treatment * Oxygen through nasal cannula * Empiric antibiotic Rocephin and doxycycline * Insulin Lantus and insulin regular according to mild sliding scale * Continue home meds including Entresto, spironolactone, chlorthalidone and aspirin DIET: Cardiac diet DVT PROPHYLAXIS: Lovenox GI PROPHYLAXIS:: Protonix CODE STATUS: Goal of care discussed for more than 18 minutes, full code DISPOSITION: Telemetry Patient's status and plan discussed with the patient. Case discussed with Dr. León. Plan discussed with: Patient, Other (RN) My Orders My Orders Orders - TOYA ESPARZA RESDIENT Procedure Category Date Status Time Electrocardigram EKG 06/24/25 Logged 16:02 Visit Coding STANDARD RES Billing Provider: YOEL LEÓN DO Date of Service if different f: Jun 24, 2025 Common Visit Codes: [id number] INP/OBS CARE(HIGH) TOYA ESPARZA RESDIENT Jun 24, 2025 16:53
[2025-06-25] VITALS (8 sets, daily range): BP systolic 99–112; BP diastolic 41–59; PULSE 67–87; RESP 14–18; TEMP 97.4–98.5; O2SAT 91–96
[2025-06-25 06:42] LABS: Hematocrit 41.5 % (36.0-46.0); Hemoglobin 13.9 g/dL (12.2-16.2); Mean Corpuscular Hemoglobin 27.0 pg (28.0-32.0); Mean Corpuscular Volume 80.6 fL (80.0-100.0); Nucleated Red Blood Cells % 0.2 %
[2025-06-25 07:02] LABS: Alkaline Phosphatase 76 U/L (46-116); Anion Gap 11 (5-15); BUN/Creatinine Ratio 26.2 (10.0-20.0); Calcium 10.0 mg/dL (8.7-10.4); Potassium 3.5 mmol/L (3.5-5.1); Sodium 142 mmol/L (136-145); Total Protein 7.3 g/dL (5.7-8.2)
[2025-06-25 07:03] LABS: Alanine Aminotransferase < 9 U/L (7-40); Albumin 4.4 g/dL (3.2-4.8); Bilirubin, Total 0.6 mg/dL (0.2-1.0); Blood Urea Nitrogen 34 mg/dL (9-23); Carbon Dioxide 33 mmol/L (20-31); Chloride 98 mmol/L (98-107); Glucose 142 mg/dL (74-106)
--- NOTE | 2025-06-25 10:13 | DVHPNRES ---
Progress Note Date Seen: Jun 25, 2025 Resident Creating Document: TOYA ESPARZA RESDIENT Medical Necessity Reason Pt with a Central, PICC or Fol: No Subjective Review of Systems Ms Marianna Lockwood, an 89-year-old parsi speaking female with past medical history of systolic heart failure with ejection fraction 20%, hypertension, dilated cardiomyopathy, arthritis, status post Bi V ICD implantation 4 years ago with Biotronik device, accompanied by daughter in-law presented to the ER with the complaints of acute onset progressive shortness of breaths. The [id number]-oyv reported since 6:00 p.m. the patient was struggling to breathe and was having cold sweats. The [id number]-av-[id number] says around September or October the patient was admitted at [facility] due to fluid in lungs. At that time she was intubated. On 06/24, patient seen and examined at the bedside. Patient is feeling better since admission but still complaining of shortness of breaths. On 06/25, patient seen and examined at the bedside. Patient is feeling better, but still have mild shortness of breaths. Objective vital signs Vital Sign Date Time Temp Pulse Resp B/P (MAP) Pulse Ox O2 Delivery O2 Flow Rate FiO2 06/25/25 08:31 97.6 67 17 99/55 (70) 94 97.6 06/25/25 08:00 Nasal Cannula* 4 36 Total Intake and Output 06/24/25 06/24/25 06/25/25 15:00 23:00 07:00 Intake Total 500 ml 250 ml Output Total 1400 ml 1200 ml Balance -900 ml -950 ml medications Current Medications Medications Dose Ordered Sig/Annmarie Route Start Time Stop Time Status Last Admin Dose Admin Acetaminophen 650 mg Q6HP PRN PO 06/24/25 02:45 06/24/25 09:36 650 MG Ceftriaxone Sodium 50 ml @ 100 mls/hr Q24H IV 06/25/25 03:00 Doxycycline Hyclate 100 ml @ 50 mls/hr Q12H IV 06/24/25 03:00 06/24/25 15:29 50 MLS/HR Insulin Glargine 12 units QAM SC 06/24/25 07:00 Diagnostic Test (Pha) 1 strip ACHS 06/24/25 07:00 06/25/25 06:31 1 STRIP Insulin Human Regular ACHS SC 06/24/25 07:00 06/24/25 11:30 3 UNITS Dextrose 50 ml UD PRN IV 06/24/25 03:00 Aspirin 81 mg DAILY PO 06/24/25 10:00 06/24/25 09:37 81 MG Chlorthalidone 25 mg DAILY PO 06/24/25 10:00 06/24/25 09:37 25 MG Clopidogrel Bisulfate 75 mg DAILY PO 06/24/25 10:00 06/24/25 09:38 75 MG Digoxin 0.125 mg DAILY PO 06/24/25 10:00 06/24/25 09:38 0.125 MG Sacubitril/ Valsartan 1 tab DAILY PO 06/24/25 10:00 06/24/25 09:37 1 TAB Pantoprazole Sodium 40 mg DAILY IV 06/24/25 10:00 06/24/25 09:36 40 MG Furosemide 40 mg BIDD IV 06/25/25 18:00 Examination General Appearance: Alert, Oriented X3, Cooperative, No acute distress HEENT: Atraumatic, PERRLA, EOMI, Mucous membrane moist/pink Respiratory: Bilateral crackles Cardiovascular: Regular rate, Normal S1, Normal S2, No murmurs, no chest wall tenderness Abdominal: Normal bowel sounds, Soft, No tenderness, No hepatospenomegaly, No masses Extremities: Bilateral grade 2 pedal edema Skin: No rashes, No breakdown, No significant lesion Neuro: Normal gait, Normal speech, Strength at 5/5 X4 ext, Normal tone, Sensation intact, Cranial nerves 3-12 NL, Reflexes 2+ Psych/Mental Status: Mental status NL, Mood NL laboratory and microbiology Laboratory Tests 06/25/25 06:25 Test 06/25/25 06:25 Range/Units Serum Glucose 142 H 74-106 mg/dL Microbiology Date/Time Source Procedure Growth Status 06/24/25 07:42 Nose MRSA Screen - Final Complete 06/24/25 02:35 Blood Blood Culture - Preliminary NO GROWTH AFTER 24 HOURS OF INCUBATION. Resulted Problem List/Assessment/Plan Problem List/Assessment/Plan Acute on chronic hypoxic respiratory failure, likely due to COPD exacerbation/heart failure exacerbation Acute on chronic systolic heart failure COPD exacerbation Pneumonia due to Gram-positive or Gram-negative organism NSTEMI, likely type 2, due to above Sepsis, due to above History of CKD type 3 AICD end of life History of ventricular tachycardia History of accelerated hypertension History of hyperlipidemia Hypertensive heart disease Hypertension. Hyperlipidemia. History of coronary artery disease. History of tobacco use, discontinued in 2013. 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 Case discussed with Dr. León. Plan discussed with: Patient, Other My Orders My Orders Orders - TOYA ESPARZA RESDIENT Procedure Category Date Status Time Electrocardigram EKG 06/24/25 Logged 16:02 * Picc Line Consult CONS 06/25/25 Transmitted 03:40 Visit Coding STANDARD RES Billing Provider: YOEL LEÓN DO Date of Service if different f: Jun 25, 2025 Common Visit Codes: [id number] INP/OBS CARE(HIGH) TOYA ESPARZA RESDIENT Jun 25, 2025 10:13
--- NOTE | 2025-06-25 12:15 | ECG ---
[facility] Test Date: 2025-06-24 Test Time: 16:27:40 Pat Name: SCOTT LARSEN Department: Room: 0201T A Gender: F Chaperone: [id number] : 1935 Requested By: TOYA ESPARZA Order Number: [id number] Reading MD: Measurements Intervals [place] Rate: 76 P: 31 LA: 56 QRS: -48 QRSD: 191 T: 102 QT: 484 QTc: 545 Interpretive Statements Sinus rhythm Atrial premature complexes Short LA interval Left bundle branch block Please click the below link to view image of tracing.
[2025-06-25] MEDS: FUROSEMIDE 40 MG/4 ML VIAL IV SCH (17:34)
[2025-06-26] VITALS (9 sets, daily range): BP systolic 99–110; BP diastolic 51–66; PULSE 72–86; RESP 14–20; TEMP 97.3–98.2; O2SAT 92–98
[2025-06-26 08:59] LABS: Hematocrit 45.3 % (36.0-46.0); Hemoglobin 15.0 g/dL (12.2-16.2); Mean Corpuscular Hemoglobin 27.1 pg (28.0-32.0); Mean Corpuscular Volume 81.5 fL (80.0-100.0); Nucleated Red Blood Cells % 0.2 %
[2025-06-26 09:14] LABS: Alanine Aminotransferase < 9 U/L (7-40); Albumin 4.7 g/dL (3.2-4.8); Alkaline Phosphatase 84 U/L (46-116); Anion Gap 12 (5-15); BUN/Creatinine Ratio 29.9 (10.0-20.0); Bilirubin, Total 0.6 mg/dL (0.2-1.0); Blood Urea Nitrogen 38 mg/dL (9-23); Calcium 10.5 mg/dL (8.7-10.4); Carbon Dioxide 33 mmol/L (20-31); Chloride 96 mmol/L (98-107); Glucose 124 mg/dL (74-106); Potassium 3.6 mmol/L (3.5-5.1); Sodium 141 mmol/L (136-145); Total Protein 8.0 g/dL (5.7-8.2)
[2025-06-26] MEDS ORDERED: CEPH250C PO (15:56)
--- NOTE | 2025-06-27 14:17 | DVHPN2 ---
Progress Note - Dictate Date Seen: Jun 25, 2025 Medical Necessity Reason Pt with a Central, PICC or Fol: No Subjective PT WITH SS COMPLEX SOB RAMIREZ PMH * Dilated cardiomyopathy. * Heart failure with reduced ejection fraction. * Status post permanent pacemaker implantation, status post upgrade to a dual chamber AICD. Now presents with signs and symptom complex of increasing shortness of breath. She had the pacemaker initially implanted in 2013 and subsequently underwent upgrade to a dual chamber AICD in 2019. PERTINENT MEDICAL HISTORY: Significant for: * Hypertension. * Hyperlipidemia. * History of coronary artery disease. * History of tobacco use, discontinued in 2013. * History of COPD. * History of diabetes with: A. Diabetic neuropathy. B. Diabetic nephropathy. C. Diabetic retinopathy. CURRENT MEDICATIONS: Include aspirin, Plavix as well as Entresto and also, anticholesterol medication. FAMILY HISTORY: Negative. SOCIAL HISTORY: At this time, as stated above, remote history of tobacco use, discontinued in 2013. REVIEW OF SYSTEMS: She denies any fever or chills. No endocrine disorder, other than diabetes. No history of any diverticulosis or diverticulitis. No history of abdominal pain. No history of irritable bowel syndrome or inflammatory bowel disease. No liver disease. At this time, denies any CVA in the past. No history of TIA. No history of trauma. She is COVID negative as well. No history of any musculoskeletal disease other than osteoarthritis. No rheumatologic disorder such as lupus or rheumatoid arthritis. vital signs Vital Sign Date Time Temp Pulse Resp B/P (MAP) Pulse Ox O2 Delivery O2 Flow Rate FiO2 06/26/25 17:00 98.2 84 14 107/66 (80) 95 98.2 06/26/25 08:02 Nasal Cannula* 4 36 Total Intake and Output 06/26/25 06/26/25 06/27/25 15:00 23:00 07:00 Intake Total 600 ml Output Total 550 ml Balance 50 ml laboratory and microbiology Laboratory Tests 06/26/25 08:14 Test 06/26/25 08:14 Range/Units Serum Glucose 124 H 74-106 mg/dL Problem List SOB RAMIREZ LEUKOCYTOSIS CKD STAGE III PMH * Dilated cardiomyopathy. * Heart failure with reduced ejection fraction. * Status post permanent pacemaker implantation, status post upgrade to a dual chamber AICD. Now presents with signs and symptom complex of increasing shortness of breath. She had the pacemaker initially implanted in 2013 and subsequently underwent upgrade to a dual chamber AICD in 2019. PERTINENT MEDICAL HISTORY: Significant for: * Hypertension. * Hyperlipidemia. * History of coronary artery disease. * History of tobacco use, discontinued in 2013. * History of COPD. * History of diabetes with: A. Diabetic neuropathy. B. Diabetic nephropathy. C. Diabetic retinopathy. Assessment/Plan ABX CONT DIURESIS Plan discussed with: Patient LEWIS SHAH MD Jun 27, 2025 14:17
== END 2025-06-26 17:00 | disposition home or self-care (01) | DRG 871 ==
LOC: EDBD 00:05 → ER 00:05 → OVERFLOW 02:36 → TELE-CENTR 10:31
PROVIDERS: ADMIT Internal Medicine; ATTEND Internal Medicine Cardiovascular Disease
PROC: 5A09357 Assistance with Respiratory Ventilation, Less than 24 Consecutive Hours, Continuous Positive Airway Pressure (ICD-10-PCS; principal; 2025-06-24)
DX: A41.9 Sepsis, unspecified organism (principal); I21.A1 Myocardial infarction type 2; I50.23 Acute on chronic systolic (congestive) heart failure; J96.21 Acute and chronic respiratory failure with hypoxia; J15.9 Unspecified bacterial pneumonia; J15.69 Pneumonia due to other Gram-negative bacteria; I42.0 Dilated cardiomyopathy; I13.0 Hypertensive heart and chronic kidney disease with heart failure and stage 1 through stage 4 chronic kidney disease, or unspecified chronic kidney disease; J44.1 Chronic obstructive pulmonary disease with (acute) exacerbation; E11.22 Type 2 diabetes mellitus with diabetic chronic kidney disease; N18.30 Chronic kidney disease, stage 3 unspecified; D72.829 Elevated white blood cell count, unspecified; Z66 Do not resuscitate; E11.319 Type 2 diabetes mellitus with unspecified diabetic retinopathy without macular edema; Z20.822 Contact with and (suspected) exposure to COVID-19; E78.5 Hyperlipidemia, unspecified; E11.40 Type 2 diabetes mellitus with diabetic neuropathy, unspecified; I25.10 Atherosclerotic heart disease of native coronary artery without angina pectoris; I48.91 Unspecified atrial fibrillation; Z79.82 Long term (current) use of aspirin; Z87.891 Personal history of nicotine dependence; Z95.810 Presence of automatic (implantable) cardiac defibrillator; Z88.1 Allergy status to other antibiotic agents
CPT/HCPCS: 36415; 36600; 71045; 76775; 80053; 81001; 82306; 82570; 82607; 82805; 82962; 83036; 83605; 83880; 84300; 84443; 84484; 85025; 85610; 85730; 87040; 87081; 87426; 87804; 93005; 93306; 96365; 96375; 99291; G0378; J1815; J2470